=== PATIENT | male | born 1995 | race Caucasian/White ===

== ENCOUNTER 2018-11-13 04:41 | Emergency (ER) | payer SELFPAY ==
[2018-11-13 04:46] VITALS: BP 161/95; PULSE 104; RESP 18; TEMP 37.1; O2SAT 98
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
[2018-11-13] MEDS: Ibuprofen 600 MG TAB PO (05:06)
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
[2018-11-13 06:44] VITALS: BP 152/94; PULSE 90; RESP 18; TEMP 36.6; O2SAT 97
== END 2018-11-13 06:44 | disposition home or self-care (01) ==
PROVIDERS: Emergency Provider Physician Assistant
DX: S63.501A Unspecified sprain of right wrist, initial encounter (principal); V48.5XXA Car driver injured in noncollision transport accident in traffic accident, initial encounter; E66.01 Morbid (severe) obesity due to excess calories; Z68.41 Body mass index [BMI] 40.0-44.9, adult
CPT/HCPCS: 99283; 73110

== ENCOUNTER 2019-03-04 12:32 | Emergency (ER) | payer SELFPAY ==
--- NOTE | 2019-03-04 12:36 | ED.GENADUL_ITS ---
Discharge Plan Disposition Patient Disposition: HOME Condition: Stable Discharge Details Chief Complaint: RashLesion Clinical Impression: Pilonidal cyst Primary Care Provider: None,None ED Provider: Ed Leary Home Meds and New Rx's Prescriptions: New amoxicillin-pot clavulanate [Augmentin] 875-125 mg tablet 1 tab PO BID Qty: 14 RF: 0 sulfamethoxazole-trimethoprim [Bactrim DS] 800-160 mg tablet 1 tab PO BID Qty: 14 RF: 0 Discharge Instructions Additional Instructions: you should receive a call for an appointment with general surgery if you have severe worsening pain or fevers return to the emergency department Medical Decision Making 23 yo male with hx of pilonidal cyst drained a month ago comes in with recurrent pain in the coccyx area without trauma, falls, and no fevers. On exam has small 1x1cm of erythema over coccyx with hard lesion in the middle, no area of fluctuance at this time. discussed attempting I and D but he declined given how small the area currently is. Given the erythema will start him on po abx and refer to general surgery for possible excision in a week. return precautions given Differential Diagnosis Differential Diagnosis: pilonidal cyst, cellulitis HPI General Mode of arrival: ambulatory . Date/Time Provider Initiated Documentation: 03/04/19 12:34 . Limitations to Documentation: no limitations . Information obtained by: patient . History of Present Illness 23 year old M presents to the emergency department with the chief complaint of sore on coccyx, described as moderate, Quality is described as aching, and is localized to the back. Patient reports no radiation. Patient started experiencing this day(s) (1) and it has been constant. No relieving factors improve symptom(s), No exacerbating factors reported . Patient notes no other symptoms.. Related Data Home Medications Medication Instructions Recorded Confirmed amoxicillin-pot clavulanate 1 tab PO BID #14 tab 03/04/19 [Augmentin] sulfamethoxazole-trimethoprim 1 tab PO BID #14 tab 03/04/19 [Bactrim DS] Previous Rx's Medication Instructions Recorded amoxicillin-pot clavulanate 1 tab PO BID #14 tab 03/04/19 [Augmentin] sulfamethoxazole-trimethoprim 1 tab PO BID #14 tab 03/04/19 [Bactrim DS] Allergies Allergy/AdvReac Type Severity Reaction Status Date / Time No Known Allergies Allergy Unverified 03/04/19 12:41 General ESMER: 4 Review of Systems Review of Systems ROS Unobtainable: All systems reviewed & are unremarkable except as noted in HPI and below Constitutional Constitutional: Denies chills, Denies fever(s) and Denies weakness ENT Ears, Nose, Mouth, and Throat: Denies change in voice Cardiovascular Cardiovascular: Denies chest pain and Denies dyspnea Respiratory Respiratory: Denies cough and Denies dyspnea Gastrointestinal Gastrointestinal: Denies abdominal pain, Denies nausea and Denies vomiting Neurologic Neurologic: Denies weakness [facility] Social History Smoking/Tobacco Use Status: Never Drug use: Never Substance use type: does not use Do you feel safe at home: Yes Do you feel safe in your relationship?: Yes Exam Const General: no acute distress Orientation: alert HENMT Head: normal to inspection Ears: external ears normal General nose exam: external nose normal Mouth: moist mucous membranes Eyes General: appearance normal, both eyes and all related structures Neck Neck: normal visual inspection Resp Effort & Inspection: normal respiratory effort and able to speak in complete sentences Cardio Rate: regular rate Back/Spine/Pelvis Back: no CVA tenderness Skin General skin exam: no rashes or lesions noted Neuro General: alert and oriented x3 Extrem General: normal to inspection Psych Mental Status: mental status grossly normal
[2019-03-04 12:38] VITALS: BP 145/85; PULSE 99; RESP 16; TEMP 36.1; O2SAT 97
--- NOTE | 2019-03-04 13:25 | NUR.NOTE ---
Nursing Note: Referral [facility] for follow up. Referral given to Care Management for a PCP. Rachell Heck.
== END 2019-03-04 12:55 | disposition home or self-care (01) ==
LOC: ER 12:58
PROVIDERS: Emergency Provider Emergency Medicine
DX: L05.91 Pilonidal cyst without abscess (principal)
CPT/HCPCS: 99283